=== PATIENT | male | born 1985 | race Caucasian/White ===

== ENCOUNTER 2023-05-15 11:35 | Outpatient (AMB) | payer OTHER, SELFPAY ==
[2023-05-15 11:40] VITALS: BP 130/61; PULSE 80; BMI 61.1
--- NOTE | 2023-05-15 11:40 | MHC.OFFVIS ---
Intake Vital Signs 05/15/23 11:40 Height 6 ft 4 in Weight 501 lb 12.353 oz BMI 61.1 BP 130/61 Blood Pressure Location Lt brachial Position Sitting Pulse 80 Intake Visit Reasons: pt req follow up experiencing GI symptoms Intake Note: Patient presents to in office visit today in follow up. CC: abdominal pain, constipation, diarrhea, blood in stool, tiredness, feeling of not emptying bowel completely. He also reports occasional nausea. Denies other GI symptoms. 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 Allergies amoxicillin [From Augmentin] Allergy (Severe, Verified 05/15/23 11:44) Hives clavulanic acid [From Augmentin] Allergy (Severe, Verified 05/15/23 11:44) Hives HPI pt req follow up experiencing GI symptoms HPI Details 38 yr old m here for f/u He has been having variable stool habit he has incomplete emptying abdominal pain, usu in the lower abdomen tired feeling sx been going on and off for last few years appetite is good, weight is high nausea sometimes, no vomiting fiber intake is not so good Colonoscopy: for rectal bleeding, with inflammed hemorrhoids, otherwise nml ROS: Constitutional : No Weight loss, No Fever, No Chills ENT/Mouth : No sore throat, No Rhinorrhea Eyes: No Swelling, No Redness Cardiovascular : No Chest Pain, No SOB, No Edema Respiratory : No Cough, No Sputum, No Wheezing Gastrointestinal : see HPI Genitourinary : NO Dysuria, No Urinary Frequency, No Hematuria, No Urgency Musculoskeletal : No joint pain, No Myalgias, No Joint Swelling Skin : No Skin Lesions, No rash Neuro : No Weakness, No Numbness, No Dizziness, No Headache Psych : No Anxiety/Panic, No Depression Heme/Lymph: No Bruising, No Lymphadenopathy Endocrine : No Polyuria, No Polydipsia All other systems reviewed and are negative. EXAM: GENERAL: The patient is well developed and nontoxic. VITAL SIGNS:see workflow HEENT: Nonicteric sclerae, PERRLA, EOMI. Oropharynx clear. Moist mucous membranes. Conjunctivae appear well perfused. No thyroid mass. CHEST: Chest wall is nontender. HEART: Regular rate and rhythm without murmurs. LUNGS: Clear to auscultation bilaterally. ABDOMEN: Soft, positive bowel sounds, nontender, no organomegaly.no flank tenderness SKIN: No rash, no excessive bruising, petechiae, or purpura. NEUROLOGIC: Cranial nerves II-XII intact without motor/sensory deficit. A/P; 1/ Abnormal bowel habit, possibly due to poor fiber and sedentary lifestyle and HCTZ use Plan; 1/ check labs, fecal lactoferrin, TSH 2/ CT e to r/o IBD --make sure our scanner can hold the weight PFSH Surgical History H/O colonoscopy S/P carpal tunnel release S/P tonsillectomy Family History Mother Breast cancer Maternal Grandmother Pancreatic cancer Maternal Grandfather Kidney malignancy Social History Alcohol intake: current Alcohol intake frequency: holidays/special occasions only Patient Tobacco Use Status: Never used Tobacco Use of substances other than those prescribed or required for medical reasons: No Physical Exam Vital Signs: Last Vital Signs Pulse 80 05/15/23 11:40 BP 130/61 05/15/23 11:40 BMI result Body Mass Index 61.1 Assessment & Plan Assessment & Plan (1) Abnormal bowel habits: Code(s): R19.8 - Other specified symptoms and signs involving the digestive system and abdomen Orders: Orders Lactoferrin, Fecal, Quant. Today K51.50 - Left sided colitis without complications, R19.8 - Other specified symptoms and signs involving the digestive system and abdomen Pancreatic Elastase-1 Today R19.8 - Other specified symptoms and signs involving the digestive system and abdomen Vitamin B12 and Folate Today R19.8 - Other specified symptoms and signs involving the digestive system and abdomen Comprehensive Met. Panel Today K75.81 - Nonalcoholic steatohepatitis (ECHOLS), R19.8 - Other specified symptoms and signs involving the digestive system and abdomen C Reactive Protein Today R19.8 - Other specified symptoms and signs involving the digestive system and abdomen Ferritin Today R19.8 - Other specified symptoms and signs involving the digestive system and abdomen Vitamin C Today R19.8 - Other specified symptoms and signs involving the digestive system and abdomen Zinc Today R19.8 - Other specified symptoms and signs involving the digestive system and abdomen Complete Blood Count Auto Diff Today R19.8 - Other specified symptoms and signs involving the digestive system and abdomen TSH reflex Free T4 Today R19.8 - Other specified symptoms and signs involving the digestive system and abdomen CT enterography Today R10.33 - Periumbilical pain Coding Level of Care Code Est Pt Level 4 (24914) Diagnoses Abnormal bowel habits R19.8
== END 2023-05-15 13:06 | disposition home or self-care (01) ==
PROVIDERS: PCP Hospitalist; Visit Provider Internal Medicine Gastroenterology
DX: R19.8 Other specified symptoms and signs involving the digestive system and abdomen (principal)
CPT/HCPCS: 99214

== ENCOUNTER 2023-05-15 11:35 | Outpatient (REF) | payer OTHER, SELFPAY ==
[2023-05-15 12:30] LABS: MANUAL DIFF FLAG NO
[2023-05-15 13:50] LABS: Basophils Absolute Auto 0.1 X10*3/uL (0.0-0.2); Basophils Percent Auto 1.1 % (0-2); Eosinophils Absolute Auto 0.3 X10*3/uL (0.0-0.4); Eosinophils Percent Auto 3.3 % (0-4); Hematocrit 43.6 % (42.0-52.0); Hemoglobin 14.3 g/dl (14.0-18.0); Imm Gran Abs Auto 0.03 X10*3/uL (0.00-0.03); Imm Gran Pct Auto 0.3 % (0.0-0.4); Lymphocytes Absolute Auto 3.1 X10*3/uL (1.2-4.9); Lymphocytes Percent Auto 32.9 % (20-40); Mean Corpuscular HGB Conc 32.8 g/dl (31.0-36.0); Mean Corpuscular Hemoglobin 29.9 pg (27.0-33.0); Mean Corpuscular Volume 91.2 fL (80.0-98.0); Mean Platelet Volume 10.4 fL (9.4-12.4); Monocytes Absolute Auto 0.7 X10*3/uL (0.1-1.2); Monocytes Percent Auto 7.3 % (2-11); Neutrophils Absolute Auto 5.2 x10*3/uL (2.0-8.3); Neutrophils Percent Auto 55.1 % (45-73); Platelet Count 303 X10*3/uL (160-400); Red Blood Count 4.78 X10*6/uL (4.60-5.80); Red Cell Distribution Width 14.2 % (11.0-16.0); White Blood Count 9.5 X10*3/uL (4.8-10.8)
[2023-05-15 14:52] LABS: Alanine Aminotransferase 39 U/L (0-40); Alkaline Phosphatase 54 U/L (39-117); Anion Gap 14 (12-20); Aspartate Amino Transferase 26 U/L (5-37); Bilirubin Total 0.3 mg/dL (0.0-1.0); Blood Urea Nitrogen 9 mg/dL (9-16); C Reactive Protein 0.86 mg/dL (< or = 0.50); Calcium 9.7 mg/dL (8.4-10.2); Carbon Dioxide 28 mmol/L (22-29); Chloride 103 mmol/L (96-108); Estimated Glomerular Filt Rate > 60; Glucose Random 76 mg/dL (60-115); Potassium 3.9 mmol/L (3.3-5.1); Sodium 141 mmol/L (135-145); Total Protein 7.5 g/dL (6.5-8.0)
[2023-05-15 15:01] LABS: TSH reflex Free T4 2.48 uIU/mL (0.32-4.0)
[2023-05-15 15:16] LABS: Folate 9.2 ng/mL (> or = 4.0); Vitamin B12 518 pg/mL (200-900)
[2023-05-15 16:57] LABS: Ferritin 263 ng/mL (20-250)
[2023-05-18 15:34] LABS: Zinc 62 mcg/dL (60-130)
[2023-05-20 19:44] LABS: Vitamin C 0.3 mg/dL (0.2-2.1)
== END 2023-05-15 11:36 | disposition home or self-care (01) ==
LOC: HO.LAB 11:35
PROVIDERS: PCP Hospitalist; Visit Provider Internal Medicine Gastroenterology
DX: K75.81 Nonalcoholic steatohepatitis (NASH) (principal); R19.8 Other specified symptoms and signs involving the digestive system and abdomen
CPT/HCPCS: 36415; 80053; 82180; 82607; 82728; 82746; 84443; 84630; 85025; 86140

== ENCOUNTER 2023-07-10 14:59 | Outpatient (REF) | payer OTHER, SELFPAY ==
--- NOTE | ~2023-07-10 | CT_ITS ---
EXAMINATION: CT ENTEROGRAPHY ABDOMEN AND PELVIS WITH CONTRAST CLINICAL INFORMATION: Periumbilical pain. COMPARISON: Abdominal ultrasound 05/26/2021 TECHNIQUE: Study performed with oral VoLumen (1350 mL) and 480 mL of water to distend the abdomen. The patient was injected with 85 mL Omnipaque 350 intravenous contrast which was administered without adverse effect. Coronal and sagittal reformatted images were obtained at the technologist's workstation. This CT examination was performed using dose optimization techniques as appropriate, variously including the following: *Automated exposure control *Adjustment of mA and/or kV according to patient size (this includes techniques or standardized protocols for targeted exams where dose is matched to indication/reason for exam; i.e. extremities or head) *Use of iterative reconstruction technique DLP: 2039 mGy-cm FINDINGS: Image quality is technically degraded by patient's body habitus. GASTROINTESTINAL FINDINGS: Stomach: Satisfactorily distended and unremarkable in appearance. Small intestine: Satisfactorily distended and unremarkable in appearance. No abnormal dilatation or wall thickening. No small bowel bowel obstruction. Large intestine: Well-distended and unremarkable in appearance. No perirectal changes demonstrated. The appendix is not visualized. Additional findings: No abnormal enhancement of the vasa recta or significant mesenteric or retroperitoneal lymphadenopathy is seen. ABDOMINAL AND PELVIC CT FINDINGS: Liver, gallbladder, biliary tract: The liver is enlarged and diffusely decreased in attenuation. No suspicious hepatic lesion. No biliary ductal dilatation. The gallbladder is unremarkable. Pancreas: No ductal dilatation. Spleen: Not enlarged. Adrenal glands and kidneys: No adrenal mass. The kidneys are symmetric in size and enhancement. No hydronephrosis or perinephric fluid collection. Ureters and bladder: Unremarkable. Lymphovascular structures: No bulky abdominal or pelvic lymphadenopathy. Bones: No destructive bone lesions. Lung bases: No pleural or pericardial effusion. CT/CT enterography IMPRESSION: Hepatomegaly and hepatic steatosis.
[2023-07-10] MEDS: Sorbitol/Mannit/Xanth Imaging 500 ML LIQUID 1500 ML PO (16:29)
[2023-07-10] MEDS: iohexoL 350 MG/ML 100 ML INFUS..BTL 85 ML IV (16:29)
== END 2023-07-10 15:00 | disposition home or self-care (01) ==
LOC: HO.CT 14:59
PROVIDERS: PCP Hospitalist; Visit Provider Internal Medicine Gastroenterology
DX: R10.33 Periumbilical pain (principal)
CPT/HCPCS: 74177; Q9967

== ENCOUNTER 2025-10-14 07:36 | Outpatient (REF) | payer OTHER, SELFPAY ==
--- OUTSIDE RECORDS SUMMARY | 2024-07-11 08:30 | XMS_ITS ---
Author Organization [facility] Address [address] [place] [id number] Care Team Providers Care Ent Consultant Name Role Phone MICHAEL RASMUSSEN Primary Care Provider Danielle Guerrero Unavailable [phone] REASON FOR VISIT AWV Social History Tobacco Use: Social History Observation Description Date Details (start date - stop date) Never Smoker NA - NA Tobacco Use/Smoking Question Answer Notes Are you a nonsmoker Alcohol Screen (Audit-C) Question Answer Notes Did you have a drink contain ing alcohol in the past year? Yes How often did you have a dri nk containing alcohol in the past year? Monthly or less (1 point) How many drinks did you have on a typical day when you were drinking in the past year? 1 or 2 drinks (0 point) Points 1 Interpretation Negative Encounters Encounter Location Date Provider Diagnosis [facility] [address] [address] 07/11/2024 Danielle Guerrero Plan Of Treatment No Information Progress Notes * AMATOMio BATISTA JuveDOB:[birth year] (40 yo M)Acc No.[id number]:07/11/2024 Progress Notes Patient: Mio GARIBAY Appointment Provider: Ernesto Guerrero :1985 A ge:39 Y S ex:Male Date:07/11/2024 Address:[address] [place], [place] [id number] Pcp:MICHAEL RASMUSSEN Subjective: * Chief Complaints: * 1 . AWV. * HPI: i nternal medicine: Mr. Amato is a 38 year old gentleman with hypertension, MUNDO, morbid obesity, internal hemorrhoids and s/p COVID-19 infection here for annual physical examination. * ROS: G eneral/Constitutional: Overall health G ood. C hange in appetite d enies.?Chills d enies. F ever d enies. N ight sweats d enies. S leep disturbance d enies. W eight gain d enies. W eight loss d enies. N eurologic: Difficulty speaking d enies. D izziness d enies.?Gait abnormality d enies. H eadache d enies. L oss of strength d enies. M naty loss d enies. S eizures d enies. T ingling/Numbness d enies . O phthalmologic: Blurred vision d enies. D ischarge d enies. D ry eye d enies. R ed eye d enies. E NT: Change in Voice D enies. C old Symptoms D enies.?Dizziness D enies. N trevor Congestion D enies. O talgia D enies. N osebleed d enies. S noring d enies. C ardiovascular: Diaphoresis D enies. P edal Edema D enies. P ND (Paroxsymal nocturnal dyspnea) D enies. C hest pain d enies. D ifficulty laying flat d enies. D yspnea on exertion d enies. H eart murmur d enies. O rthopnea?denies. R espiratory: Snoring d enies. A sthma d enies. C ough d enies. S hortness of breath with exertion d enies. S putum production d enies. W heezing d enies. G astrointestinal: Change in bowel habits d enies. C onstipation d enies. D ecreased appetite d enies. D iarrhea d enies. H eartburn d enies. N ausea d enies. V omiting d enies. M usculoskeletal: tingling/numbness D enies. m yalgias D enies. J oint Swelling D enies. e xtremeties n ormal. A rthritis d enies. B ack problems d enies. C arpal tunnel d enies. J oint stiffness d enies. M uscle aches d enies. E ndocrine: Bowel Changes D enies. B reast Discharge D enies.?poor libido D enies. C old intolerance d enies. E xcessive sweating d enies.?Excessive thirst d enies. F requent urination d enies. T hyroid problems d enies. S kin: Bruising D enies. E czema d enies. H air changes d enies. R shaheed d enies. S kin lesion(s) d enies. P sychiatric: Anxiety d enies. D epressed mood d enies. D ifficulty sleeping d enies. N ervous breakdown d enies. S ubstance abuse d enies.? U rology: blood in urine d enies. b urning on urination d enies. d ifficulty urinating d enies. d ischarge d enies. d ysuria d enies.? * Medical History: H ypertension, Generalized anxiety disorder, Morbid obesity, Status post coronavirus 19 infection. * Family History: F ather: alive, diagnosed with Hypertension. M other: alive, chronic obstructive pulmonary disease, heart failure, diagnosed with Hypertension. P aternal uncle: diagnosed with Diabetes.? Mother has Obesity. * Social History: T obacco Use: T obacco Use/Smoking A re you a n onsmoker D rugs/Alcohol: D rugs H ave you used drugs other than those for medical reasons in the past 12 months? N o Alcohol Screen (Audit-C) D id you have a drink containing alcohol in the past year? Y es H ow often did you have a drink containing alcohol in the past year? M onthly or less (1 point) H ow many drinks did you have on a typical day when you were drinking in the past year? 1 or 2 drinks (0 point) P oints 1 I nterpretation N egative M iscellaneous: E xercise: Patient walk. Living with: alone. Occupation: Works full-time.. Objective: * Vitals: * Examination: g eneral exam: GENERAL APPEARANCE: a lert, well hydrated, well nourished, in no distress. HEAD: n ormocephalic , atraumatic. EYES: p upils equal, round, reactive to light and accommodation , extraocular movement intact (EOMI). EARS: h earing intact.. NOSE: n hakeem patent, no swelling of turbinates, no congestion. NECK/THYROID: n ormal , no thyromegaly, no palpable nodules, trachea midline, no carotid bruit , no cervical lymphadenopathy . SKIN: n ormal. HEART: S 1, S2 , regular rate and rhythm, no murmurs, rubs, gallops, no jugular venous distention. LUNGS: c lear to auscultation bilaterally , no wheezes, rales, rhonchi. CHEST: n ormal shape and expansion, , normal anteroposterior (AP) diameter. ABDOMEN: s oft, nontender, nondistended, no guarding, rigidity or rebound tenderness , no hepatosplenomegaly. MUSCULOSKELETAL: n o physical limitations, gait normal.? EXTREMITIES: g ood capillary refill in nail beds , no clubbing, cyanosis, or edema. NEUROLOGIC: c ognitive exam grossly normal , alert and oriented , nonfocal CN II-XII intact. Psychiatry n ormal affect, engaged in conversation, good eye contact. Assessment: Plan: * Treatment: * Procedure Codes: N OSHO NO SHOW FEE * Images: * Electronic signature of Devyn Guerrero PA-C on 10/14/2025 at 07:38 AM EST Sign off status: Pending * Appointment Provider: Ernesto Guerrero Date: 0 07/11/2024 Generated for Garret mosley/Hattie/Juan José on: 1 12/15/2024 07:38 AM EST History and Physical Notes * HPI (History of Present Illness) Category Sub-Category Detail Notes Category Not es internal medicine Mr. Kimberly brown is a 38 year old gentleman with hypertension, MUNDO, morbid obesity, internal hemorrhoids and s/p COVID-19 infection here for annual physical examination Examination Category Sub-Category Detail Notes Category Not es general exam GENERAL APPEARANCE: alert, well hydrated, well nourished, in no distress HEAD: normocephalic , atra umatic EYES: pupils equal, round, reactive to light and accommodation , extraocular movement intact (EOMI) EARS: hearing intact. NOSE: nares patent, no swe lling of turbinates, no congestion NECK/THYROID: normal , no thyromeg rashmi, no palpable nodules, trachea midline, no carotid bruit , no cervical lymphadenopathy HEART: S1, S2 , regular rat e and rhythm, no murmurs, rubs, gallops, no jugular venous distention CHEST: normal shape and exp ansion, , normal anteroposterior (AP) diameter LUNGS: clear to auscultatio n bilaterally , no wheezes, rales, rhonchi ABDOMEN: soft, nontender, non distended, no guarding, rigidity or rebound tenderness , no hepatosplenomegaly NEUROLOGIC: cognitive exam gross ly normal , alert and oriented , nonfocal CN II- XII intact SKIN: normal EXTREMITIES: good capillary refil l in nail beds , no clubbing, cyanosis, or edema MUSCULOSKELETAL: no physical limitati ons, gait normal Psychiatry normal affect, engag ed in conversation, good eye contact
--- NOTE | ~2025-10-14 | FL_ITS ---
EXAMINATION: XR UPPER GI SERIES X-RAY BARIUM SWALLOW CLINICAL INFORMATION: Gastroesophageal reflux disease COMPARISON: None available. TECHNIQUE: Study performed with thick and thin barium, effervescent granules. FINDINGS: Normal swallowing mechanism. No evidence of tracheal penetration or aspiration. No mass or mucosal lesion is identified. Esophagus demonstrates normal distention and motility. No evidence of stricture, mass or mucosal lesion. Stomach demonstrates normal distention. No mass or mucosal lesions are seen. There is normal passage of the barium through the stomach into the proximal small bowel. No hiatal hernia seen. There is mild gastroesophageal reflux in the supine oblique position. FLUOROSCOPY TIME: 1 minute 22 seconds DOSE AREA PRODUCT: 342 uGy-m2 (microgray-meter squared) FL/FL upper GI w air w Ba Swallow IMPRESSION: 1. Mild gastroesophageal reflux. 2. No hiatal hernia seen. 3. Otherwise unremarkable study. Electronically signed by: Hebert Trevino MD 10/14/2025 10:07 AM [facility]
--- OUTSIDE RECORDS SUMMARY | 2025-10-14 07:39 | XMS_ITS | Patient Health Record ---
Author Organization [facility] Address [address] [facility] [address] [place] [address] Care Team Providers Care Production Honing Machine Operator Name Role Phone MICHAEL RASMUSSEN Primary Care Provider Allergies Allergen (clinical drug ingredient) Drug/Non Drug Allergy documented on EMR Reaction Allergy Type Onset Date Status amoxicillin / clavulanate Augmentin nausea and vomiting Drug Allergy Active Reason For Referral No Information Medications Medication SIG (Take, Route, Frequency, Duration) Notes Start Date End Date Status Fluconazole 200 MG 1 tablet Orally once a day; Duration: 10 days 07/25/2024 Active Omeprazole 20 MG TAKE 1 CAPSULE DAILY; Duration: 90 Active Diclofenac Sodium 75 MG 1 tablet with food or milk Orally Twice a day; Duration: 10 days 10/05/2020 Not-Taking Vitamin D-[address] 25 MCG (1000 UT) 1 tablet Orally Once a day; Duration: 90 days 08/05/2024 Active Paxlovid (300/100) 20 x 150 MG & 10 x 100MG 3 tablets Orally Twice a day; Duration: 5 day(s) 12/22/2022 Not-Taking Fluticasone Propionate 50 MCG/ACT 1 spray in each nostril Nasally Once a day; Duration: 30 days 11/06/2023 Not-Taking Fluticasone Propionate 50 MCG/ACT SPRAY 1 SPRAY INTO EACH NOSTRIL EVERY DAY; Duration: 30 Not-Taking Amoxicillin 3 times a day (started on Monday, dental procedure) Not-Taking Meloxicam 15 MG 1 tablet Orally Once a day; Duration: 30 days Active Bactrim DS 800-160 MG 1 tablet Orally Twice a day; Duration: 10 days Not-Taking Azithromycin 250 MG as directed Orally 2 tablets on the first day, then 1 tablet daily; Duration: 5 days 11/06/2023 Not-Taking Meclizine HCl 12.5 MG 1 tablet as needed Orally every 12 hrs; Duration: 10 days 11/03/2022 Not-Taking Fluconazole 150 MG 1 tablet Orally once weekly; Duration: 30 days Diflucan to be taken 1 tablet by mouth once a week for 4 doses Danielle Guerrero 06/29/2024 09:20:07 AM > 06/29/2024 Not-Taking Clotrimazole 1 % 1 application Externally Twice a day; Duration: 14 days 06/21/2024 Active Lisinopril-hydroCHLOR Othiazide 20-25 MG TAKE 1 TABLET DAILY; Duration: 90 Active Ergocalciferol 1.25 MG (07612 UT) 1 capsule Orally weekly; Duration: 90 days 02/05/2025 Active Immunizations Vaccine Route Administration Date Status Comme nts COVID Unknown 01/28/2021 Administered Pfizer COVID Unknown 02/06/2021 Administered Pfizer Influenza, high dose seasonal IM Intramuscular 07/03/2020 Administered Influenza, seasonal, injectable, preservative free, 6-35 months IM Intramuscular 08/13/2019 Administered Social History Tobacco Use: Social History Observation [...] drinks (0 point) Points 1 Interpretation Negative Problems Problem Type SNOMED Code ICD Code Onset Dates Problem Status W/U Status Risk Notes Problem Verruca vulgaris (83186000) Viral wart, unspecified (B07.9) Active confirmed Problem Morbid obesity (disorder) (453459736) Morbid (severe) obesity due to excess calories (E66.01) Active confirmed Problem Hyperlipidemia (08047731) Hyperlipidemia, unspecified (E78.5) Active confirmed Problem Anxiety disorder (140250988) Anxiety disorder, unspecified (F41.9) Active confirmed Problem Acute sinusitis (40377382) Acute sinusitis, unspecified (J01.90) Active confirmed Problem Acute bronchitis (43486815) Acute bronchitis, unspecified (J20.9) Active confirmed Problem Gastro-esophageal reflux disease without esophagitis (729680007) Gastro-esophageal reflux disease without esophagitis (K21.9) Active confirmed Problem Constipation (62525439) Constipation, unspecified (K59.00) Active confirmed Problem Fatty liver (077552229) Fatty (change of) liver, not elsewhere classified (K76.0) Active confirmed Problem Gastrointestinal hemorrhage (72944351) Gastrointestinal hemorrhage, unspecified (K92.2) Active confirmed Problem Arthralgia of the ankle and/or foot (427580657) Pain in left ankle and joints of left foot (M25.572) Active confirmed Problem Cough (79225078) Cough (R05) Active confirmed Problem Chest pain (85458937) Chest pain, unspecified (R07.9) Active confirmed Problem Right upper quadrant pain (795069120) Right upper quadrant pain (R10.11) Active confirmed Problem Strain of back muscle (952901071) Sprain of joints and ligaments of unspecified parts of neck, initial encounter (S13.9XXA) Active confirmed Problem Body mass index 40+ - morbidly obese (829307749) Body mass index (BMI) 50-59.9 , adult (Z68.43) Active confirmed Problem Essential hypertension (53926411) Essential (primary) hypertension (I10) Active confirmed Problem Vitamin D deficiency (55535733) Vitamin D deficiency (E55.9) Active confirmed Encounters Encounter Location Date Provider Diagnosis [address] [address] 02/05/2025 MICHAEL RASMUSSEN Vitamin D deficiency E55.[address] [address] 12/04/2024 MICHAEL RASMUSSEN [address] [address] 01/20/2025 MICHAEL RASMUSSEN Assessments Encounter Date Diagnosis (ICD Code) Assessment Notes Treatment Notes Treatment Clinical Notes Section Notes 02/05/2025 Vitamin D deficiency (ICD-10 - E55.9) Plan Of Treatment Pending Test Test Name Order Date X ray : Ankle, left 07/18/2018 X ray : Ankle, right 07/18/2018 X ray : Foot, left 07/18/2018 X ray : Foot, right 07/18/2018 Chest X-ray PA and lateral 07/03/2020 Mitochondrial (M2) Antibody 08/07/2018 ALPHA FETOPROTEIN 08/07/2018 US Abdomen 07/19/2018 Hepatitis Panel (Acute) 08/07/2018 Smooth Muscle Antibody (IgG) with Reflex 08/07/2018 CBC/Differential (No Platelet)-803112 Albumin/Creatinine Ratio,Urine-[id number] Insurance Providers Payer Name Payer Address Payer Phone Subscriber Number Group Number Insured Name Patient Relationship to Insured Coverage Start Date Coverage End Date [facility] [address] [place] [address] [place] [phone] [id number] Self - patient is the insured 4 Medical (General) History Medical History History ICD Code Hypertension Generalized anxiety disorder Morbid obesity Status post coronavirus 19 infection Hospitalization History Reason Date(Month/Year)
== END 2025-10-14 07:37 | disposition home or self-care (01) ==
LOC: HO.XRAY 07:36
PROVIDERS: PCP Hospitalist; Visit Provider Internal Medicine Gastroenterology
DX: K21.9 Gastro-esophageal reflux disease without esophagitis (principal); R10.10 Upper abdominal pain, unspecified
CPT/HCPCS: 74246

== ENCOUNTER → 2025-10-14 07:37 | Outpatient (BNV) | payer OTHER, SELFPAY | PROVIDERS: PCP Hospitalist; Visit Provider Radiology Diagnostic Ultrasound | DX: K21.9 Gastro-esophageal reflux disease without esophagitis (principal) | CPT/HCPCS: 74246 ==